=== PATIENT | female | born 1955 | race Caucasian/White ===

== ENCOUNTER 2016-08-09 10:03 | Day surgery (SDC) | payer MEDICARE, MEDICAID ==
--- NOTE | 2016-08-06 10:53 | NUR ---
EKG REQUESTED FROM [facility]. EKG FROM JUNE 2016 TO BE FAXED TO [facility].
[~2016-08-09] VITALS: Ht 172.7 cm; Wt 135.4 kg
[~2016-08-09 10:03] MED LIST: ACETAMINOPHEN 500 MG TAB (TYLENOL) PO PRN; CHONDROITIN/HYALURONATE (DISCOVISC) 1 ML SYR IO ONE; PHENYLEPHRINE/KETOROLAC 4 ML VIAL IO ONE; SODIUM CHLORIDE FLUSH 3 ML SYR IV PRN; TETRACAINE 0.5% OPHTHALMIC SOLUTION 4 ML BTL ONE; diphenhydrAMINE 50 MG/ML INJ (BENADRYL) IV PRN
[2016-08-09] MEDS ORDERED: MIDAZOLAM 2 MG/2 ML (VERSED) VIAL ONE ×2 (10:09→11:19)
[2016-08-09 10:41] VITALS: BP 137/89
[2016-08-09] MEDS: LIDOCAINE 3.5% OPHTH GEL (AKTEN) 1 ML BTL OD SCH ×4 (10:41→11:03)
[2016-08-09] MEDS: CATARACT PRE-OP EYE DROPS 0.5ML SYRINGE OD SCH ×2 (10:52→11:03)
[2016-08-09] MEDS: HOME MEDICATION OD SCH ×2 (10:52→11:04)
[2016-08-09] MEDS ORDERED: LIDOCAINE 2% BOLUS 100 MG/5 ML (XYLOCAINE) SYRINGE ONE (11:16)
[2016-08-09] MEDS ORDERED: NALBUPHINE 10 MG/ML (NUBAIN) 1 ML AMP ONE (11:21)
[2016-08-09 11:49] VITALS: BP 152/86
== END 2016-08-09 12:58 | disposition home or self-care (01) ==
LOC: ASC 10:03
PROVIDERS: ATTEND Ophthalmology
DX: H25.11 Age-related nuclear cataract, right eye (principal); E11.9 Type 2 diabetes mellitus without complications; J44.9 Chronic obstructive pulmonary disease, unspecified; C85.90 Non-Hodgkin lymphoma, unspecified, unspecified site; H55.00 Unspecified nystagmus; Z79.4 Long term (current) use of insulin
CPT/HCPCS: 66984; A9270; C9447; J2250; J2300; V2632